=== PATIENT | female | born 1995 | race Caucasian/White ===

== ENCOUNTER 2022-01-26 19:04 | Emergency (ER) | payer BC, SELFPAY ==
[2022-01-26 19:31] VITALS: BP 157/98; PULSE 81; RESP 16; TEMP 36.6; O2SAT 100
--- NOTE | 2022-01-26 20:22 | ED.EAR ---
HPI - Ear Problem General Chief complaint: Ear Stated complaint: Ear infection Time Seen by Provider: 01/26/22 20:23 Source: patient and RN notes reviewed Mode of arrival: ambulatory Limitations: no limitations History of Present Illness HPI Narrative: 26-year-old female presents concern for right ear itching, left ear pain. Reports symptoms started worsening yesterday. She denies drainage from the ear, denies hearing changes. She denies rhinorrhea, nasal congestion, sore throat. MD Complaint: ear pain Related Data Allergies Allergy/AdvReac Type Severity Reaction Status Date / Time No Known Allergies Allergy Verified 01/26/22 19:41 Review of Systems Review of Systems: CONSTITUTIONAL: Denies malaise, chills, sweats, or fever. EYES: Denies visual changes, redness, or discharge. ENT: Denies rhinorrhea, congestion, sinus pain, and sore throat. Reports left ear pain, right ear itching CARDIOVASCULAR: Denies chest pain, palpitations, or edema. RESPIRATORY: Denies cough. Denies dyspnea. GASTROINTESTINAL: Denies abdominal pain, nausea, vomiting, diarrhea SKIN: Denies rash or itching. MUSCULOSKELETAL: Denies myalgia. NEUROLOGIC: Denies headache. All systems reviewed & are unremarkable except as noted in HPI and below PMFSH Comments At time of signature, agree with nursing past medical, surgical, social and family history. There is no relevant family history pertinent to the presenting complaint Exam Narrative: GENERAL: Well-appearing, well-nourished, and in no acute distress. HEAD: Normocephalic EYES: PERRLA, conjunctivae clear ENT: Nares clear Mucous membranes moist. TM pearly purcell with sharp light reflex bilaterally; no tragal tenderness. Left auditory canal erythematous and slightly edematous without drainage. NECK: Supple. No lymphadenopathy CHEST: Clear to auscultation, breath sounds equal. No wheezing, rhonchi, rales, or stridor. No respiratory distress, speaks in full sentences. HEART: Regular rate and rhythm. No murmur heard. SKIN: Warm, dry, no rash. NEURO: Alert and oriented x3. PSYCH: Normal mood and affect Course Course Emergency Course: Patient is aware of diagnosis, understands and agrees to treatment plan. Anticipatory guidance given. Patient agrees to follow-up as directed and is aware of reasons to seek care at the emergency department. Portions of this record may have been created with voice recognition software Level of Care: Express Care Visit Vital Signs Vital signs: Vital Signs Temperature 97.8 F 01/26/22 19:31 Pulse Rate 81 01/26/22 19:31 Respiratory Rate 16 01/26/22 19:31 Blood Pressure 157/98 H 01/26/22 19:31 Pulse Oximetry 100 01/26/22 19:31 Temperature 97.8 F 01/26/22 19:31 Pulse Rate 81 01/26/22 19:31 Respiratory Rate 16 01/26/22 19:31 Blood Pressure 157/98 H 01/26/22 19:31 Pulse Oximetry 100 01/26/22 19:31 Reviewed. Medical Decision Making MDM Narrative Medical decision making narrative: Differential diagnosis considered: Bailey virus, strep pharyngitis, allergic rhinitis, upper respiratory tract infection, sinusitis, rhinosinusitis, nasopharyngitis. viral pharyngitis, otitis media, otitis externa, otitis effusion, cerumen impaction, foreign body. Exam findings show no acute concerns or changes; patient is non-toxic appearing and is in no distress. Patient is appropriate for outpatient treatment and follow-up. Vital Signs Vital Signs: Vital Signs Temperature 97.8 F 01/26/22 19:31 Pulse Rate 81 01/26/22 19:31 Respiratory Rate 16 01/26/22 19:31 Blood Pressure 157/98 H 01/26/22 19:31 Pulse Oximetry 100 01/26/22 19:31 Temperature 97.8 F 01/26/22 19:31 Pulse Rate 81 01/26/22 19:31 Respiratory Rate 16 01/26/22 19:31 Blood Pressure 157/98 H 01/26/22 19:31 Pulse Oximetry 100 01/26/22 19:31 Critical Care Time Critical Care Time Critical Care Time: No Discharge Plan Discharge Clinical Impression: Otitis externa Q
== END 2022-01-26 20:31 | disposition home or self-care (01) ==
PROVIDERS: Emergency Provider Nurse Practitioner
DX: H60.502 Unspecified acute noninfective otitis externa, left ear (principal)
CPT/HCPCS: 99213; G0463